=== PATIENT | female | born 2000 | race American Indian/Alaskan Native ===

== ENCOUNTER 2018-11-10 20:52 | Emergency (ER) | payer OTHER ==
[~2018-11-10] VITALS: Ht 162.6 cm; Wt 7720.7 kg
[~2018-11-10 20:52] MED LIST: FOLTX TABLET1 EAC1 PO; LEVOTHYROXINE50 MCG PO; NORCO 5-325 TA1 EACH PO; OMEPRAZOLE20 MG PO; PERCOCET 5-3251 EACH PO; VITAMIN D3400 UNIT PO; ZOFRAN ODT4 MG PO
== END 2018-11-10 22:44 | disposition left against medical advice (07) ==
LOC: ED 20:52
DX: J02.9 Acute pharyngitis, unspecified (principal); Z53.21 Procedure and treatment not carried out due to patient leaving prior to being seen by health care provider